=== PATIENT | female | born 1930 | race Caucasian/White ===

== ENCOUNTER → 2018-02-04 | Day surgery (SDC) | payer OTHER ==
[2018-02-01 15:29] VITALS: BMI 28.0
[2018-02-04 11:39] VITALS: TEMP 98.4
[2018-02-04 15:03] VITALS: BP 111/61; PULSE 66
--- NOTE | 2018-02-05 17:59 | PATH ---
Surgical Pathology Report Patient Name: HOA MARTINEZ [facility]. Rec. #: [id number] /Age/Gender: 1930 (Age: 87) / F Account: [id number] Location: [facility]-ENDOSCOPY Taken: 02/04/2018 Received: 02/04/2018 Reported: 02/05/2018 Physicians: Naomi Sun M.D. Specimen(s) Received A: POLYP SIGMOID B: BX CECUM POLYP C: BX RIGHT COLON POLYP Clinical History Abdominal pain, constipation Postoperative diagnosis: Colon polyps Final Diagnosis A. SIGMOID COLON, POLYP, POLYPECTOMY: POLYPOID COLONIC MUCOSA WITH FOCAL SUPERFICIAL HYPERPLASTIC FEATURES. B. CECUM, POLYP, POLYPECTOMY: TUBULAR ADENOMA. C. COLON, RIGHT, POLYP, POLYPECTOMY: TUBULAR ADENOMA(S). Electronically Signed Leela Lyons M.D. Gross Description A. Received in formalin, labeled "biopsy sigmoid polyp" is a l[place], irregular portion of soft tissue measuring 0.5 cm. in greatest dimension. The specimen is submitted in toto in one cassette. B. Received in formalin, labeled "cecum polyp" is a luev[place], irregular portion of soft tissue measuring 0.3 cm. in greatest dimension. The specimen is submitted in toto in one cassette. C. Received in formalin labeled "right colon polyp," is a 0.8 x 0.7 x 0.1 cm aggregate of luevano soft tissue fragments. The formalin is filtered and the specimen is entirely submitted in one cassette. 02/04/2018 saudi02/04/2018
== END | disposition home or self-care (01) ==
LOC: JASU-ENDO 09:34
PROVIDERS: ATTEND Internal Medicine Gastroenterology
PROC: 0DBN8ZX Excision of Sigmoid Colon, Via Natural or Artificial Opening Endoscopic, Diagnostic (ICD-10-PCS; 2018-02-04)
PROC: 0DBE8ZX Excision of Large Intestine, Via Natural or Artificial Opening Endoscopic, Diagnostic (ICD-10-PCS; 2018-02-04)
PROC: 0DBK8ZX Excision of Ascending Colon, Via Natural or Artificial Opening Endoscopic, Diagnostic (ICD-10-PCS; principal; 2018-02-04 11:00)
DX: Z12.11 Encounter for screening for malignant neoplasm of colon (principal); Z86.010 Personal history of colon polyps; K63.5 Polyp of colon; K57.30 Diverticulosis of large intestine without perforation or abscess without bleeding
CPT/HCPCS: 88305-TC

== ENCOUNTER 2020-04-11 16:25 | Emergency (ER) | payer OTHER ==
[2020-04-11 16:41] VITALS: BP 182/74; PULSE 66; TEMP 98.1; BMI 27.0
[2020-04-11 17:09] LABS: BASO % 2.3 % (0-2.0); EOS % 2.9 % (0-4.5); HEMATOCRIT 41.3 % (32.4-45.2); HEMOGLOBIN 13.9 GM/dl (10.7-15.3); LYMPH % 29.5 % (8-40); MCH 31.2 pg (25.7-33.7); MCHC 33.7 g/dl (32.0-36.0); MEAN CELL VOLUME 92.7 fl (80-96); MEAN PLT VOLUME 8.8 fl (7.5-11.1); NEUT % 54.3 % (42.8-82.8); PLATELET COUNT 464 K/MM3 (134-434); RBC 4.46 M/mm3 (3.60-5.2); WHITE BLOOD COUNT 11.3 K/mm3 (4.0-10.8)
[2020-04-11 17:13] LABS: ALBUMIN 4.2 g/dl (3.4-5.0); BILIRUBIN,TOTAL 0.6 mg/dl (0.2-1); CALCIUM 9.3 mg/dl (8.5-10); CREATININE 1.3 mg/dl (0.55-1.3); TOT PROT 6.8 g/dl (6.4-8.2)
== END 2020-04-11 18:32 | disposition home or self-care (01) ==
LOC: FER 16:25
DX: E87.5 Hyperkalemia (principal)
CPT/HCPCS: 36415; 80053; 83735; 85025; 93005; 99284-25

== ENCOUNTER 2020-12-28 12:44 | Inpatient (IN) | payer OTHER ==
[2020-12-28 15:39] LABS: BASO % 0.5 % (0-2.0); EOS % 0.9 % (0-4.5); HEMATOCRIT 37.6 % (32.4-45.2); HEMOGLOBIN 12.7 GM/dL (10.7-15.3); LYMPH % 12.9 % (8-40); MCH 31.6 pg (25.7-33.7); MCHC 33.9 g/dl (32.0-36.0); MEAN CELL VOLUME 93.3 fl (80-96); MEAN PLT VOLUME 8.5 fl (7.5-11.1); NEUT % 76.7 % (42.8-82.8); PLATELET COUNT 420 10^3/uL (134-434); RBC 4.03 M/mm3 (3.60-5.2); RDW 14.2 % (11.6-15.6); WHITE BLOOD COUNT 13.3 K/mm3 (4.0-10.0)
[2020-12-28 15:57] LABS: CHLORIDE 104 mmol/L (98-107); SODIUM 136 mmol/L (136-145)
[2020-12-28 16:00] LABS: ALBUMIN 3.5 g/dl (3.4-5.0); ANION GAP 6 MMOL/L (8-16); BLOOD UREA NITROGEN 30.8 mg/dL (7-18); CALCIUM 9.6 mg/dL (8.5-10.1); CO2 27 mmol/L (21-32); GLUCOSE,RANDOM 111 mg/dL (74-106); LIPASE 149 U/L (73-393)
[2020-12-28 16:03] LABS: CREATININE 1.5 mg/dL (0.55-1.3); SGOT/AST 279 U/L (15-37); SGPT/ALT 315 U/L (13-61)
[2020-12-28 16:05] LABS: BILIRUBIN,TOTAL 2.6 mg/dL (0.2-1); TOT PROT 7.3 g/dl (6.4-8.2)
[2020-12-28 16:06] LABS: ALK PHOS 423 U/L (45-117)
[2020-12-28] MEDS ORDERED: PIPERACILLIN/TAZOB 3.375 GM 3.375 GM in DEXTROSE 5%-WATER - 50 ML IVPB ONE (16:20)
[2020-12-28] MEDS ORDERED: SODIUM CHLORIDE 0.9% 500 ML INFUS.BAG IV ONE (16:20)
[2020-12-28] MEDS ORDERED: ONDANSETRON 4 MG/2 ML VIAL IVPUSH ONE (16:29)
[2020-12-28] MEDS ORDERED: ONDANSETRON 4 MG/2 ML VIAL ONE (17:05)
[2020-12-28] MEDS ORDERED: PIPERACILLIN/TAZOB 3.375 GM 3.375 GM/50 ML BAG IVPB ONE (17:05)
[2020-12-28 21:59] LABS: INR 1.02 (0.83-1.09); PROTHROMBIN TIME (PATIENT) 12.5 SEC (9.7-13.0)
[2020-12-28 22:02] LABS: ACTIVATED PTT 27.8 SECONDS (25.2-36.5)
[2020-12-28] MEDS ORDERED: HEPARIN NA (PORCINE) 5,000 UNITS/ML 1ML VIAL ONE (22:25)
[2020-12-28] MEDS: HEPARIN NA (PORCINE) 5,000 UNITS/ML 1ML VIAL SQ SCH (22:29)
[2020-12-29 00:40] VITALS: BMI 26.5
[2020-12-29 00:49] LABS: CALCIUM 8.6 mg/dL (8.5-10.1)
[2020-12-29 00:53] LABS: CREATININE 1.2 mg/dL (0.55-1.3)
[2020-12-29] MEDS ORDERED: PIPERACILLIN/TAZOB 2.25 GM 2.25 GM in DEXTROSE 5%-WATER - 50 ML IVPB SCH (01:02)
[2020-12-29] MEDS: SODIUM CHLORIDE 1,000 ML IV SCH ×2 (01:45→14:54)
[2020-12-29] MEDS ORDERED: DEXTROSE 5%-WATER - 50 ML IVPB ONE ×3 (02:03→14:56)
[2020-12-29] MEDS ORDERED: PIPERACILLIN/TAZOBACTAM 2.25 GM VIAL IVPB ONE ×2 (02:03→08:11)
[2020-12-29 02:09] LABS: EPI CELLS 3 /uL (0-25.1); HYALINE CASTS 0 /uL (0-3.1); PH,URINE 6.5 (5.0-8.0); URINE APPEARANCE CLEAR; URINE BACTERIA 4 /uL (0-1359); URINE BILIRUBIN 1+ (NEGATIVE); URINE COLOR DK YELLOW; URINE GLUCOSE (UA) NEGATIVE (NEGATIVE); URINE KETONE NEGATIVE (NEGATIVE); URINE LEUK ESTERASE TRACE (NEGATIVE); URINE NITRITE NEGATIVE (NEGATIVE); URINE PROTEIN NEGATIVE (NEGATIVE); URINE RBC 24 /uL (0-23.9); URINE WBC 9 /uL (0-25.8)
[2020-12-29] MEDS: PIPERACILLIN/TAZOB 2.25 GM 2.25 GM in DEXTROSE 5%-WATER - 50 ML IVPB SCH ×2 (02:35→08:30)
[2020-12-29] MEDS: HEPARIN NA (PORCINE) 5,000 UNITS/ML 1ML VIAL SQ SCH ×3 (05:32→22:57)
[2020-12-29] MEDS ORDERED: PT OWN MED DRAWER 7, Y5N ONE (05:48)
[2020-12-29 09:55] LABS: HEMOGLOBIN 12.2 GM/dL (10.7-15.3); MCH 32.3 pg (25.7-33.7); MCHC 34.9 g/dl (32.0-36.0); MEAN CELL VOLUME 92.5 fl (80-96); MEAN PLT VOLUME 8.9 fl (7.5-11.1); PLATELET COUNT 355 10^3/uL (134-434); RBC 3.78 M/mm3 (3.60-5.2); RDW 14.2 % (11.6-15.6); WHITE BLOOD COUNT 7.7 K/mm3 (4.0-10.0)
[2020-12-29] MEDS ORDERED: amLODIPine BESYLATE 5 MG TABLET (FP) PO SCH (10:00)
[2020-12-29] MEDS ORDERED: PANTOPRAZOLE SODIUM 40 MG VIAL IVPUSH SCH (10:30)
[2020-12-29 10:31] LABS: ALBUMIN 3.2 g/dl (3.4-5.0); BLOOD UREA NITROGEN 20.3 mg/dL (7-18); PHOSPHOROUS 3.8 mg/dL (2.5-4.9)
[2020-12-29 10:32] LABS: BILIRUBIN,TOTAL 5.3 mg/dL (0.2-1); CALCIUM 8.7 mg/dL (8.5-10.1); TOT PROT 6.5 g/dl (6.4-8.2)
[2020-12-29 10:33] LABS: MAGNESIUM 2.1 mg/dL (1.8-2.4)
[2020-12-29 10:34] LABS: CREATININE 1.1 mg/dL (0.55-1.3)
[2020-12-29] MEDS ORDERED: PIPERACILLIN/TAZOBACTAM 3.375 GM VIAL IVPB ONE (14:56)
[2020-12-29] MEDS ORDERED: PIPERACILLIN/TAZOB 3.375 GM 3.375 GM in DEXTROSE 5%-WATER - 50 ML IVPB SCH (16:00)
[2020-12-29 23:22] VITALS: BP 125/65; PULSE 61; TEMP 98
== END 2020-12-29 23:00 | disposition short-term general hospital (02) | DRG 445 ==
LOC: JER 12:44 → JERBED 16:31 → J5S 23:27
PROVIDERS: ADMIT Internal Medicine; ATTEND Internal Medicine
DX: K80.01 Calculus of gallbladder with acute cholecystitis with obstruction (principal); N17.9 Acute kidney failure, unspecified; E87.5 Hyperkalemia; I10 Essential (primary) hypertension; E78.5 Hyperlipidemia, unspecified; R74.01 Elevation of levels of liver transaminase levels; K21.9 Gastro-esophageal reflux disease without esophagitis
CPT/HCPCS: 36415; 71046-TC-FY; 76700-TC; 80048; 80053; 81003; 82550; 83690; 83735; 84100; 84484; 85025; 85027; 85610; 85730; 86706; 86708; 86803; 86850; 86900; 86901; 87040; 87086; 87340; 87517; 93005; 93010; 99285-25; C9803; J1644; U0003; U0005